=== PATIENT | male | born 1955 | race Caucasian/White ===

== ENCOUNTER 2021-05-01 12:25 | Emergency (ER) | payer MEDICARE, BC ==
[2021-05-01] MEDS ORDERED: SODIUM CHLORIDE 0.9% 50 ML IVPB ONE (14:00)
[2021-05-01] MEDS ORDERED: BAMLANIVIMAB (EUA) 700 MG, ETESEVIMAB (EUA) 1,400 MG in SODIUM CHLORIDE 0.9% 50 ML IVPB ONE (14:15)
--- NOTE | 2021-05-01 14:32 | ED ---
URI HPI - General Chief Complaint: Upper Respiratory Infection Stated Complaint: Wants Covid test, at home test was positive Time Seen by Provider: 05/01/21 12:51 Source: patient, RN notes reviewed Mode of arrival: ambulatory Limitations: no limitations - History of Present Illness Initial Comments: 65-year-old male presents emergency Department chief complaint of positive COVID-19. Patient states he has a positive yesterday symptoms started last couple days. Fevers chills bodyaches cough congestion no shortness breath no chest pain no headache or dizziness. - Related Data Home Medications Medication Instructions Recorded Confirmed Cholecalciferol [Vitamin D3 (25 2,000 unit PO DAILY@1200 05/13/14 05/13/14 Mcg = 1000 Iu)] Multivitamins, Thera [Multivitamin 1 tab PO DAILY 05/13/14 05/13/14 (formulary)] Previous Rx's Medication Instructions Recorded Hydrocodone/Acetaminophen [Thurman 1 - 2 each PO Q4HR PRN #30 tab 05/20/14 5-325] Allergies Allergy/AdvReac Type Severity Reaction Status Date / Time No Known Allergies Allergy Verified 05/01/21 12:44 Review of Systems ROS Statement: Those systems with pertinent positive or pertinent negative responses have been documented in the HPI. ROS Other: All systems not noted in ROS Statement are negative. 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, left knee strain had some PT improved History of Any Multi-Drug Resistant Organisms: None Reported Past Surgical History: No Surgical Hx Reported Additional Past Surgical History / Comment(s): colonoscopy, fx hip and wrist when 16 years old Past Anesthesia/Blood Transfusion Reactions: No Reported Reaction Past Psychological History: No Psychological Hx Reported Smoking Status: Never smoker Past Alcohol Use History: None Reported Past Drug Use History: None Reported - Past Family History Mother Additional Family Medical History / Comment(s): of cancer possibly breast Sister(s) Additional Family Medical History / Comment(s): of breast cancer General Exam Limitations: no limitations General appearance: alert, in no apparent distress Head exam: Present: atraumatic, normocephalic, normal inspection Eye exam: Present: normal appearance, PERRL, EOMI. Absent: scleral icterus, conjunctival injection, periorbital swelling ENT exam: Present: normal exam, normal oropharynx, mucous membranes moist Neck exam: Present: normal inspection, full ROM. Absent: tenderness, meningismus, lymphadenopathy Respiratory exam: Present: normal lung sounds bilaterally. Absent: respiratory distress, wheezes, rales, rhonchi, stridor Cardiovascular Exam: Present: regular rate, normal rhythm, normal heart sounds. Absent: systolic murmur, diastolic murmur, rubs, gallop, clicks Course Vital Signs 05/01/21 12:46 Temperature 98.3 F Pulse Rate 84 Respiratory 20 Rate Blood Pressure 123/81 O2 Sat by Pulse 98 Oximetry Medical Decision Making - Medical Decision Making Patient received monoclonal antibodies vitals are stable patient discharged in stable condition. Disposition Clinical Impression: COVID-19 Disposition: HOME SELF-CARE Condition: Stable Instructions (If sedation given, give patient instructions): Coronavirus Disease 2019 (COVID-19) Additional Instructions: Please return to the Emergency Department if symptoms worsen or any other concerns. Is patient prescribed a controlled substance at d/c from ED?: No Referrals: Fred Olmedo MD [Primary Care Provider] - 1-2 days Time of Disposition: 14:32
[2021-05-01 14:44] VITALS: RESP 18
[2021-05-01 16:26] VITALS: BP 125/79; PULSE 86; TEMP 98.6
== END 2021-05-01 16:23 | disposition home or self-care (01) ==
LOC: EC 12:25
DX: U07.1 COVID-19 (principal)
CPT/HCPCS: 99283; 96365; J3490

== ENCOUNTER 2021-08-20 10:07 | Day surgery (SDC) | payer BC, MEDICARE ==
[2021-08-19 08:37] VITALS: BMI 26.9
[~2021-08-20 10:07] MED LIST: LACTATED RINGERS 1,000 ML IV SCH
[2021-08-20 10:46] VITALS: TEMP 97.8
[2021-08-20] MEDS ORDERED: LIDOCAINE 1% INJ 10MG/ML (20 ML MDV) ONE (10:57)
[2021-08-20] MEDS ORDERED: PROPOFOL 10 MG/ML 20 ML VIAL IV ONE (10:57)
--- NOTE | 2021-08-20 11:13 | P.PCN ---
Date of Procedure: 08/20/21 Procedure(s) Performed: BRIEF HISTORY: Patient is a 66-year-old pleasant white male scheduled for an elective colonoscopy as a part of evaluation of positive cologuard. He has no prior history of colonoscopy. PROCEDURE PERFORMED: Colonoscopy with snare polypectomy. PREOPERATIVE DIAGNOSIS: Positive cologuard. IV sedation per Anesthesia. PROCEDURE: After informed consent was obtained, the patient, was brought into the endoscopy unit. IV sedation was administered by Anesthesia under continuous monitoring. Digital rectal examination was normal. Initially the Olympus CF-160 flexible video colonoscope was then inserted in the rectum, gradually advanced into the cecum without any difficulty. Careful examination was performed as the scope was gradually being withdrawn. Ileocecal valve and the appendiceal orifice were visualized and appeared normal. Prep was fair.. Mucosa of the cecum, ascending colon normal. In the hepatic flexure there was a 5 mm sessile polyp removed by snare polypectomy. Rest of the, transverse colon, descending colon, sigmoid colon, and rectum appeared normal. In the sigmoid: There was another 5 mm sessile polyp removed by snare polypectomy. There was a 7 mm sessile rectal sigmoid polyp removed by snare polypectomy. Scattered sigmoid diverticulosis seen. Retroflexion was performed in the rectum and no lesions were seen. The patient tolerated the procedure well. IMPRESSION: 5 mm hepatic flexure polyp status post polypectomy 5 mm sigmoid colon polyp status post polypectomy 7 mm rectosigmoid polyp status post polypectomy Scattered sigmoid diverticulosis RECOMMENDATIONS: Findings of this examination were discussed with the patient the less his family. He was advised to follow with the biopsy results. If the biopsy results adenoma he can have a repeat colonoscopy in 5 years.
[2021-08-20 11:32] VITALS: BP 118/76; PULSE 80; RESP 16
== END 2021-08-20 11:55 | disposition home or self-care (01) ==
LOC: ORWHC2ENDO 10:07
PROVIDERS: ATTEND Internal Medicine Gastroenterology
DX: K57.30 Diverticulosis of large intestine without perforation or abscess without bleeding (principal); D12.5 Benign neoplasm of sigmoid colon; D12.7 Benign neoplasm of rectosigmoid junction
CPT/HCPCS: 45385; 88305; J2001; J2704